=== PATIENT | male | born 1950 | race African-American/Black ===

== ENCOUNTER 2023-03-13 05:17 | Emergency (ER) | payer SELFPAY ==
[2023-03-13] MEDS ORDERED: Ondansetron ODT 4 MG TAB ONE (05:50)
[2023-03-13] MEDS ORDERED: Promethazine 25 MG TAB ONE (06:25)
[2023-03-13] MEDS ORDERED: Dicyclomine 20 MG/2 ML VIAL ONE (06:30)
[2023-03-13] MEDS ORDERED: Haloperidol Lactate 5 MG/ML VIAL ONE (07:12)
== END 2023-03-13 07:53 | disposition home or self-care (01) ==
LOC: ERS 05:17
DX: R11.0 Nausea (principal); E11.9 Type 2 diabetes mellitus without complications; E78.5 Hyperlipidemia, unspecified
CPT/HCPCS: 96372; 99283; J1630; Q0162; Q0169